=== PATIENT | male | born 1965 | race Caucasian/White ===

== ENCOUNTER 2016-10-17 00:38 | Emergency (ER) | payer OTHER ==
--- NOTE | ~2016-10-17 | CR63 ---
[facility] A Service of [facility] / [facility] RADIOLOGY TEXT RESULTS PATIENT: ALEISHA CARDENAS LOCATION: [place] : 63 UNIT #: [id number] AGE: [address]: Yousif Romo MD SEX: M ORDER DR: [id number] [address] [address] [id number] E MR#: [id number] Acc #: [id number] NAME: ALEISHA CARDENAS : 1965 SEX: M STUDY DATE/TIME: 10/17/2016 UNIT: [facility] ROOM: STUDY DESCRIPTION: CR Chest 2 View Attending Physician: Yousif Romo M.D. Ordering Physician: Yousif Romo M.D. Primary Care Physician: Enrique Stafford M.D. MEDICAL IMAGING REPORT This report is preliminary unless electronic signature is present EXAM Chest x-ray 10/17 at 01:26 INDICATIONS Productive cough with pain with breathing for 2 days. COMPARISON 05/11/2016 FINDINGS PA and lateral examination of the chest upright shows a good expansion of the parenchyma with a normal distribution of the pulmonary vascularity. There is no indication of congestion, effusion, infiltrate, tumor, or nodular density. The pleural reflections and diaphragmatic contours are normal. The cardiac silhouette and mediastinal anatomy is within normal limits. IMPRESSION Normal chest. Dictated by... Arron Butler Jr., M.D. THIS IS AN ELECTRONICALLY VERIFIED REPORT Arron Butler Jr., M.D. at 10/17/2016 9:24 PM JAYLEN/butch TD: 10/17/2016 10:13 JOB #: [id number] [facility] A Service [facility] RADIOLOGY TEXT RESULTS PATIENT: ALEISHA CARDENAS LOCATION: [facility] : 63 UNIT #: [id number] AGE: [address]: Yousif Romo MD SEX: M ORDER DR: MEDICAL IMAGING REPORT Page 1 of 1 COPY
--- NOTE | ~2016-10-17 | EKG ---
PATIENT: ALEISHA CARDENAS UNIT #: [id number] Ventricular Rate: 93 BPM Atrial Rate: 93 BPM P-R Interval: 146 ms QRS Duration: 90 ms Q-T Interval: 362 ms QTC Calculation(Bezet): 450 ms P [place]: 19 degrees Calculated R [place]: 41 degrees Calculated T [place]: 59 degrees Diagnosis Line: Normal sinus rhythm Diagnosis Line: Normal ECG Diagnosis Line: No previous ECGs available Diagnosis Line: Confirmed by DELMAR SCHRADER MD ([id number]) on Diagnosis Line: 10/17/2016 11:10:33 AM INTERPRETING MD: BEKAH
[~2016-10-17 00:38] MED LIST: ACETAMINOPHEN80 M1 PO; ADVIL200 M2 PO; AMOXICILLIN; AMOXICILLIN500 M1 PO; AUGMENTIN PO; GABAPENTIN300 MG PO; GLUCOPHAGE XR500 MG PO; IBUPROFEN PO; LANTUS100 UNITS/ SUBQ; LEVAQUIN PO; LORTAB 5/500 TA1 TA2 PO; METFORMIN HCL500 M1 PO; NICOTINE T1 PATCH .2 TOP; NOVOLIN 70100 UNITS/ INJ; NOVOLOG7030 SUBQ; SILVADENE TOP; ZYVOX600 MG PO
[2016-10-17 01:29] LABS: BASOPHIL# 0.1 X10e3 (0-0.3); BASOPHIL% 0.7 % (0-2.5); EOSINOPHIL# 0.1 X10e3 (0-0.7); EOSINOPHIL% 0.7 % (0.0-7.0); HEMATOCRIT 41.2 % (38.0-50.0); HEMOGLOBIN 13.4 gm/dL (13.0-16.0); LYMPHOCYTE# 2.4 X10e3 (1.0-3.5); LYMPHOCYTE% 21.1 % (17.0-45.0); MEAN CELL VOLUME 88.6 FL (83-96); MEAN CORPUSCULAR HEMOGLOBIN 28.8 PG (28-34); MEAN CORPUSCULAR HGB CONC 32.5 g/dL (30-36); MEAN PLATELET VOLUME 10.1 FL (6.5-11.5); MONOCYTE# 0.9 X10e3 (0-1.0); NEUTROPHIL% 69.5 % (40-75); PLATELET COUNT 225 X10e3 (140-420); RED BLOOD COUNT 4.66 X10e (3.90-5.60); RED CELL DISTRIBUTION WIDTH 12.7 % (11.0-15.5); WHITE BLOOD COUNT 11.5 X10e3 (4.0-10.5)
[2016-10-17 01:30] LABS: DIFF IND NO
[2016-10-17 01:43] LABS: POC - CKMB <1.0 ng/mL (0.0-7.9); POC - TROPONIN <0.05 ng/mL (<=0.05)
[2016-10-17 01:52] LABS: ALBUMIN SERUM 3.3 g/dL (3.5-5.0); BILIRUBIN,TOTAL 0.4 mg/dL (0.2-2.0); BUN/CREATININE RATIO 18.33; CALCIUM SERUM 8.9 mg/dL (8.4-10.2); CREATININE SERUM 1.2 mg/dL (0.6-1.4); GLOM FILT RATE Estimated 69.1 mL/min (>60); POTASSIUM 4.6 mmol/L (3.5-5.1); PROTEIN TOTAL SERUM 7.4 g/dL (6.0-8.3)
[2016-10-17 01:53] LABS: BILIRUBIN, DIRECT 0.1 mg/dL (0.0-0.2); BILIRUBIN,INDIRECT 0.3 mg/dL (0.0-0.9)
== END 2016-10-17 03:55 | disposition home or self-care (01) ==
LOC: CED 00:38
PROVIDERS: Emergency Medicine
DX: R09.1 Pleurisy (principal); R73.9 Hyperglycemia, unspecified; F17.200 Nicotine dependence, unspecified, uncomplicated
CPT/HCPCS: 36415; 71020; 80048; 80076; 82553; 82947; 84484; 85025; 85379; 93005; 94640; 96361; 96374; 96375; 99284; J1885